=== PATIENT | female | born 1940 | race Caucasian/White ===

== ENCOUNTER 2024-08-20 06:07 | Day surgery (SDC) | payer MEDICARE, SELFPAY ==
[2024-08-20] VITALS (19 sets, daily range): BP systolic 150–188; BP diastolic 66–90; BMI 30.8
[2024-08-20] MEDS: LOW STRENGTH ASPIRIN 324 MG PO (07:04)
[2024-08-20] MEDS: NSS 222 ML IV (07:06)
--- NOTE | 2024-08-20 07:11 | ITS.CL.CATH ---
[facility] - Catheterization
Cardiac Catheterization
Procedure Report:
CARDIAC CATHETERIZATION REPORT
Date of Procedure: 08/20/2024
Referring: Seamus Vera MD
Indication: Recent onset angina with ischemic stress test (inferior)`
�
HEMODYNAMIC DATA
AO: 164/80
LV: 172/16
There is a mean gradient of 11 mmHg across the aortic valve consistent with mild aortic stenosis
�
LEFT VENTRICULOGRAPHY: Hyperdynamic l left ventricular wall motion with EF 70-75%
�
CORONARY ANGIOGRAPHY
Dominance: Right
Left Main: Normal
LAD: Mild luminal irregularities
Circumflex: 20% ostial circumflex stenosis and focal 20% proximal to mid circumflex stenosis with otherwise trivial luminal irregularities
RCA: Dominant vessel with 20% proximal stenosis and a very long highly calcified segment of disease in the mid RCA-the terminal part of the diseased segment has 95% stenosis. The circumflex terminates with a small PDA and medium size posterolateral
system
Angioplasty: At the conclusion the diagnostic study we proceeded with angioplasty to treat the severe mid RCA disease. This procedure was extremely difficult which was expected based on the angiographic appearance. Heparin was used for
anticoagulation. Plavix 600 mg was administered the procedure conclusion along with an extra dose of aspirin 325 mg as the patient had not been taking aspirin until arrival in the [facility] this morning. A 6 [place] JR4 guide catheter was used. A
BMW wire could not be passed cleanly across the 95% distal area of stenosis. It did appear that the tip of the guidewire was through the lesion but we could not advance the wire. Will we had a similar experience with a hydrophilic whisper wire.
At this point a Fielder XT wire was used with a 0.014 compatible Lizeth exchange catheter. Once again we were able to get the tip of the wire 1-2 mm through the lesion but could not advance it any further. There remained flow in the vessel with no
evidence of intimal dissection. The wire was removed and replaced with a Hi-Torque floppy wire. We then removed the exchange catheter and advanced a 1.5 x 15 Euphora [id number] balloon to the end of the lesion. With persistent effort and some
extremely good fortune we were able to get the tip of the wire around the crux into the distal posterolateral branch of the RCA. Balloon angioplasty of the entire diseased segment was accomplished with segmental inflations to maximum 20 yolanda. The
balloon was then removed and replaced with a 2.0 x 25 trek which was inflated to 14 yolanda along the entire length of the disease segment. We then used a 2.5 x 25 NC Euphora to dilate the entire diseased segment to 14 yolanda. There was complete balloon
expansion. Using a guide liner for backup support we passed a 3.0 x 33 Xience SHEREE to the target location where was deployed at 15 yolanda then postdilated with a 3.0 NC trek to 17 yolanda along its entire length. The final angiographic result was
outstanding. There was flush occlusion of a tiny RV branch with no clinical symptoms, ECG changes, or hemodynamic instability. There were no procedural complications.
�
Closure Device: None-the procedure was performed via the right radial artery. The Gómez's test was normal prior to the procedure.
�
Radiation (mGy): 639
DAP (cm2.Gy): 49
Fluoroscopy time: 23.7 minutes
�
CONCLUSIONS
1:�Mild aortic stenosis with mean gradient 11 mmHg
2:�Hyperdynamic left ventricular wall motion with EF 70-75%
3. Single-vessel CAD as described
4. Complex successful PCI of severe calcific mid RCA disease with placement of 3.0 x 33 Xience SHEREE with outstanding angiographic result
5. Recommend uninterrupted dual antiplatelet therapy for 12 months and continued over aggressive risk factor modification efforts. We will change her statin to atorvastatin 40 mg.
6. Continue serial clinical and echocardiographic follow-up for progression of aortic stenosis
�
�
Copy to: Seamus Vera MD, Pepe Nicole,
�
Sunny May MD, [facility]
[2024-08-20 08:03] LABS: ACT-LR - POC 263 Seconds (116-155)
[2024-08-20 08:52] LABS: ACT-LR - POC > 397 Seconds (116-155)
[2024-08-20 08:52] LABS: ACT-LR - POC > 397 Seconds (116-155)
--- NOTE | 2024-08-20 14:54 | W.PN.UPDATE ---
Update Note
Progress Note Update
83 yo WF s/p PCI RCA (Same day). She denies cp, sob, keegan diet, voiding, R rad site ecchymotic, good pulse. She will be on DAPT ASA/Plavix. She will switch simvastatin to atorvastatin 40mg daily. Cardiac rehab c/s. She will f/u Dr. Vera in 1 mo.
She is for d/c home after 330p if rad site stable and seen by [facility].
CONCLUSIONS
1:�Mild aortic stenosis with mean gradient 11 mmHg
2:�Hyperdynamic left ventricular wall motion with EF 70-75%
3. Single-vessel CAD as described
4. Complex successful PCI of severe calcific mid RCA disease with placement of 3.0 x 33 Xience SHEREE with outstanding angiographic result
5. Recommend uninterrupted dual antiplatelet therapy for 12 months and continued over aggressive risk factor modification efforts. We will change her statin to atorvastatin 40 mg.
6. Continue serial clinical and echocardiographic follow-up for progression of aortic stenosis
�
�
Copy to: Seamus Vera MD, Pepe Nicole,
�
== END 2024-08-20 16:25 | disposition home or self-care (01) ==
LOC: CATH 06:07
PROVIDERS: ATTENDING PHYSICIAN Internal Medicine Cardiovascular Disease; FAMILY PHYSICIAN Family Medicine; OTHER PHYSICIAN Internal Medicine Cardiovascular Disease
DX: I25.119 Atherosclerotic heart disease of native coronary artery with unspecified angina pectoris (principal); I25.84 Coronary atherosclerosis due to calcified coronary lesion; I35.0 Nonrheumatic aortic (valve) stenosis; Z79.899 Other long term (current) drug therapy; Z79.82 Long term (current) use of aspirin; Z79.02 Long term (current) use of antithrombotics/antiplatelets
CPT/HCPCS: 85347; 93005; 93458; C1725; C1769; C1874; C1894; C9600; Q9967